=== PATIENT | female | born 1960 | race Caucasian/White ===

== ENCOUNTER → 2017-03-22 | Outpatient (CLI) | payer OTHER ==
[~2017-03-22] MED LIST: ASPIRIN EC81 M1 PO; CALCIUM 500 +1 EAC5 PO; ERYTHROMYCIN E3.5 G1 OPHTHALMIC; MIRALAX255 GM PO; MULTIVITAMINS PO; NOHOMEMEDICATIONS; STOOL SOFTENER50 MG PO; VITAMIN D1000 UNI1 PO; VITAMIN E400 UNIT PO
== END ==
LOC: RAD 15:50
DX: M43.16 Spondylolisthesis, lumbar region (principal); M54.31 Sciatica, right side

== ENCOUNTER → 2017-04-25 | Outpatient (CLI) | payer OTHER | LOC: RAD 09:02 | DX: Z12.31 Encounter for screening mammogram for malignant neoplasm of breast (principal) ==

== ENCOUNTER → 2020-06-29 | Outpatient (CLI) | payer OTHER ==
[2020-06-29 09:19] LABS: ABSOLUTE NEUTROPHILS 3.4 thou/uL (1.4-8.2); BASOPHILS 0.8 % (0.0-2.0); EOSINOPHILS 2.8 % (0.0-3.0); HEMATOCRIT 39.7 % (37.0-47.0); HEMOGLOBIN 13.4 gm/dL (12.0-15.0); LYMPHOCYTES 36.5 % (24.0-44.0); MCH 29.7 pg (26.0-34.0); MCHC 33.7 g/dL (28.0-37.0); MCV 88.2 fL (80.0-100.0); MONOCYTES 6.2 % (1.0-8.0); PLATELET COUNT 163 thou/uL (150-400); POLYS 53.7 % (36.0-66.0); RDW 13.3 % (10.5-14.5); WBC 6.4 thou/uL (4.0-11.0)
[2020-06-29 09:36] LABS: ALBUMIN 4.1 g/dL (3.4-5.0); ANION GAP 8 mmol/L (7-16); BUN 14 mg/dL (7-18); CHLORIDE 103 mmol/L (98-107); CHOLESTEROL 201 mg/dL (<200); CO2 32 mmol/L (21-32); CREATININE 0.7 mg/dL (0.6-1.0); GLUCOSE 99 mg/dL (74-106); HDL CHOLESTEROL 59 mg/dL (>40); LDL CHOLESTEROL 121 mg/dL (<100); POTASSIUM 4.1 mmol/L (3.5-5.1); SGOT 23 U/L (15-37); SGPT 36 U/L (30-65); SODIUM 143 mmol/L (136-145); TC:HDL 3.4 Ratio (Not establshd); TOTAL BILIRUBIN 0.7 mg/dL (0.2-1.0); TOTAL PROTEIN 7.3 g/dL (6.4-8.2); TRIGLYCERIDE 105 mg/dL (<150); VLDL 21 mg/dL (<40)
== END ==
LOC: LABMALL 07:15
PROVIDERS: ATTEND Nurse Practitioner
DX: Z13.820 Encounter for screening for osteoporosis (principal); Z00.00 Encounter for general adult medical examination without abnormal findings

== ENCOUNTER → 2021-08-11 | Outpatient (CLI) | payer OTHER ==
[2021-08-11 11:22] LABS: ABSOLUTE NEUTROPHILS 3.7 thou/uL (1.4-8.2); BASOPHILS 0.7 % (0.0-2.0); EOSINOPHILS 2.2 % (0.0-3.0); HEMATOCRIT 40.2 % (37.0-47.0); HEMOGLOBIN 13.5 gm/dL (12.0-15.0); LYMPHOCYTES 37.9 % (24.0-44.0); MCH 29.5 pg (26.0-34.0); MCHC 33.6 g/dL (28.0-37.0); MCV 87.8 fL (80.0-100.0); MONOCYTES 6.3 % (1.0-8.0); PLATELET COUNT 170 thou/uL (150-400); POLYS 52.9 % (36.0-66.0); RBC 4.58 mil/uL (4.20-5.00); RDW 13.3 % (10.5-14.5); WBC 6.9 thou/uL (4.0-11.0)
[2021-08-11 11:38] LABS: ANION GAP 8 mmol/L (7-16); BUN 12 mg/dL (7-18); CALCIUM 8.8 mg/dL (8.5-10.1); CHLORIDE 105 mmol/L (98-107); CHOLESTEROL 203 mg/dL (<200); CO2 29 mmol/L (21-32); CREATININE 0.6 mg/dL (0.6-1.0); GLUCOSE 99 mg/dL (74-106); HDL CHOLESTEROL 58 mg/dL (>40); LDL CHOLESTEROL 125 mg/dL (<100); SGOT 30 U/L (15-37); SGPT 40 U/L (30-65); SODIUM 142 mmol/L (136-145); TC:HDL 3.5 Ratio (Not establshd); TOTAL BILIRUBIN 0.6 mg/dL (0.2-1.0); TOTAL PROTEIN 7.4 g/dL (6.4-8.2); TRIGLYCERIDE 102 mg/dL (<150); VLDL 20 mg/dL (<40)
== END ==
LOC: LAB 10:18
PROVIDERS: ATTEND Nurse Practitioner
DX: Z13.220 Encounter for screening for lipoid disorders (principal); R53.83 Other fatigue

== ENCOUNTER → 2021-10-13 | Outpatient (CLI) | payer OTHER | LOC: RAD 14:28 | PROVIDERS: ATTEND Family Medicine | DX: Z12.31 Encounter for screening mammogram for malignant neoplasm of breast (principal) ==